=== PATIENT | female | born 1985 | race Hispanic/Latino ===

== ENCOUNTER → 2024-06-01 07:03 | Outpatient (REF) | payer OTHER, SELFPAY ==
[2024-06-01 07:59] LABS: % Basophils 0.4 % (0-2); % Eosinophils 2.6 % (0-6); % Immature Granulocytes 0.4 % (0-0.5); % Lymphocytes 43.7 % (20.5-51.1); % Monocytes 7.1 % (1.7-9.3); % Neutrophils 45.8 % (42.2-75.2); Absolute Eosinophils 0.1 10^3/uL (0-0.7); Absolute Lymphocytes 2.2 10^3/uL (1.2-3.4); Absolute Monocytes 0.4 10^3/uL (0.1-0.6); Absolute Neutrophils 2.3 10^3/uL (1.4-6.5); Hemoglobin 9.2 g/dL (12.0-16.0); Mean Corp Hgb Conc. 32.9 g/dL (33.0-37.0); Mean Corpuscular Hgb 26.2 pg (27.0-31.0); Mean Corpuscular Volume 79.8 fL (81.0-99.0); Mean Platelet Volume 10.1 fL (7.4-10.4); Nucleated Red Blood Cells % 0 %; Platelet Count 328 10^3/uL (130-400); Red Blood Cell Count 3.51 10^6/uL (4.20-5.40); Red Cell Dist. Width 14.7 % (11.5-14.5); White Blood Cell Count 4.9 10^3/uL (4.8-10.8)
[2024-06-01 08:58] LABS: ALT (SGPT) < 10 U/L (0-35); AST (SGOT) 19 U/L (14-36); Alkaline Phosphatase 45 U/L (38-126); Blood Urea Nitrogen 16 mg/dl (7-17); Calcium 9.1 mg/dl (8.4-10.2); Carbon Dioxide 23 mmol/L (22-30); Chloride 105 mmol/L (98-107); Glucose 107 mg/dl (70-99); HDL Cholesterol 55 mg/dl; LDL Cholesterol, Calculated 117 mg/dl; Potassium 4.8 mmol/L (3.5-5.1); Sodium 134 mmol/L (135-145); Total Bilirubin 0.2 mg/dl (0.2-1.3); Total Cholesterol 198 mg/dl (50-199); Total Protein 6.9 g/dl (6.3-8.2); Triglyceride 131 mg/dl (10-149); Very Low Density Lipoprotein 26 mg/dl (0-30); eGFR > 60.00
[2024-06-01 09:08] LABS: Glycohemoglobin (HgbA1c) 5.8 % (4.0-5.6)
[2024-06-01 09:41] LABS: Vitamin B12 826 pg/ml (239-931)
== END ==
LOC: REG 07:03
PROVIDERS: ATTENDING PHYSICIAN Nurse Practitioner Acute Care
DX: R73.03 Prediabetes (principal); Z86.39 Personal history of other endocrine, nutritional and metabolic disease; D64.9 Anemia, unspecified
CPT/HCPCS: 36415; 80053; 80061; 82607; 83036; 85025

== ENCOUNTER → 2024-12-05 16:58 | Outpatient (REF) | payer OTHER, SELFPAY ==
[2024-12-05 17:31] LABS: Hematocrit 35.4 % (37.0-47.0); Hemoglobin 12.4 g/dL (12.0-16.0); Mean Corpuscular Hgb 31.4 pg (27.0-31.0); Mean Corpuscular Volume 89.6 fL (81.0-99.0); Mean Platelet Volume 9.9 fL (7.4-10.4); Platelet Count 288 10^3/uL (130-400); Red Blood Cell Count 3.95 10^6/uL (4.20-5.40); Red Cell Dist. Width 14.4 % (11.5-14.5); White Blood Cell Count 5.3 10^3/uL (4.8-10.8)
[2024-12-05 17:42] LABS: Iron 168 ug/dl (37-170)
[2024-12-05 17:51] LABS: Percent Saturation 48 % (20-50); Total Iron Binding Capacity 349 ug/dl (265-497)
[2024-12-05 18:27] LABS: Erythrocyte Sed Rate 14 mm/hour (0-20)
[2024-12-06 17:55] LABS: Vitamin D, 25-OH*** 58.6 ng/mL (30-80)
[2024-12-06 18:13] LABS: Ferritin 14.2 ng/ml (6.24-137)
[2024-12-06 19:04] LABS: Vitamin B12 524 pg/ml (239-931)
== END ==
LOC: CLINIC 16:58
PROVIDERS: ATTENDING PHYSICIAN Nurse Practitioner Adult Health
DX: D50.0 Iron deficiency anemia secondary to blood loss (chronic) (principal); Z87.898 Personal history of other specified conditions; R20.2 Paresthesia of skin
CPT/HCPCS: 36415; 72052; 82306; 82607; 82728; 83540; 83550; 84207; 85027; 85652; 86140

== ENCOUNTER → 2025-07-21 07:34 | Outpatient (REF) | payer OTHER, SELFPAY ==
[2025-07-21 09:39] LABS: Vitamin B12 491 pg/ml (239-931)
== END ==
LOC: CLINIC 07:34
PROVIDERS: ATTENDING PHYSICIAN Nurse Practitioner Adult Health
DX: R20.2 Paresthesia of skin (principal)
CPT/HCPCS: 36415; 82607; 84207